=== PATIENT | male | born 1945 | race Caucasian/White ===

== ENCOUNTER 2022-10-20 13:00 | Outpatient (OUT) | payer MEDICARE, SELFPAY | END 2022-10-20 13:01 | disposition home or self-care (01) | LOC: PST 10-27 18:46 | PROVIDERS: Visit Provider Surgery | DX: Z01.818 Encounter for other preprocedural examination (principal); D50.9 Iron deficiency anemia, unspecified ==

== ENCOUNTER 2022-10-25 06:41 | Day surgery (SDC) | payer MEDICARE, SELFPAY ==
[2022-10-25 07:21] VITALS: BP 147/93; PULSE 74; RESP 16; TEMP 36.2; O2SAT 96; BMI 22.2
[2022-10-25] MEDS: LACTATED RINGER'S SOLUTION 1,000 ML 50 ML IV (07:31)
--- NOTE | 2022-10-25 08:03 | PM.GSPRC ---
Date of procedure: 10/25/22 Indications for Procedure: anemia; history of colon polyps Pre-op diagnosis: anemia unspecified; history of colon polyps Post-op diagnosis: other Procedure: EGD with biopsy antrum Colonoscopy with hot snare colon polyp ?2 5 mm sessile in sigmoid colon Diverticulosis minimal sigmoid colon Findings: colon polyp ?2 5 mm each and sigmoid colon Diverticulosisminimal Anesthesia: MAC Surgeon: Gurdeep Dasilva Procedure Summary: 77-year-old male presents for upper and lower endoscopy due to anemia and a history of colon polyps. Patient was taken to the endoscopy suite placed in the left lateral recumbent position and given sedation by the pile driving nozzleman. The Olympus EGD scope was advanced under direct visualization to the posterior pharynx esophagus stomach through the pylorus into the 1st 2nd 3rd and 4th portions of the duodenum which were normal. The scope was returned to the stomach retroflexed on itself looking the GE junction which was normal. There was minimal or mild gastritis noted prepyloric lesion in the antrum and biopsies were taken rule out H. pylori and gastritis. No ulcers polyps or tumors were seen. The scope was then withdrawn to the distal esophagus which was normal as well as the entire esophagus was normal. The scope was removed from the mouth. Rectal digital exam was performed. Sphincter counts found be normal. Prostate was smooth slightly enlarged without nodules. The Olympus video colonoscope was advanced under direct visualization into the rectum, sigmoid, descending, transverse, ascending colon to the ileocecal valve where the appendiceal lumen was visualized and the scope was slowly withdrawn and air was desufflated. In the sigmoid colon two small 5 mm polyps were hot snared one was retrieved. Both appeared benign. There were a few scattered diverticuli noted the prep was excellent. Patient tolerated procedure well. Would recommend repeat colonoscopy in five years depending on pathology. Estimated blood loss (mL): 0 Complications: No Condition: stable Disposition: PACU
[2022-10-25 08:51] VITALS: BP 123/65; PULSE 57; RESP 16; TEMP 36.4; O2SAT 96
[2022-10-25 09:05] VITALS: BP 142/81; PULSE 66; RESP 16; O2SAT 96
[2022-10-25 09:17] VITALS: BP 141/89; PULSE 66; RESP 16; O2SAT 97
[2022-10-26 15:07] LABS: H Pylori Tissue, Urease Negative
== END 2022-10-25 09:20 | disposition home or self-care (01) ==
PROVIDERS: Visit Provider Surgery
PROC: (CPT 43239; principal; 2022-10-25 08:20)
DX: K29.50 Unspecified chronic gastritis without bleeding (principal); D12.5 Benign neoplasm of sigmoid colon; K57.30 Diverticulosis of large intestine without perforation or abscess without bleeding; D50.9 Iron deficiency anemia, unspecified; Z86.010 Personal history of colon polyps; Z79.899 Other long term (current) drug therapy; M19.90 Unspecified osteoarthritis, unspecified site; J45.909 Unspecified asthma, uncomplicated; I48.91 Unspecified atrial fibrillation; I50.9 Heart failure, unspecified; I11.0 Hypertensive heart disease with heart failure; J44.9 Chronic obstructive pulmonary disease, unspecified; I25.10 Atherosclerotic heart disease of native coronary artery without angina pectoris; F32.A Depression, unspecified; K21.9 Gastro-esophageal reflux disease without esophagitis; H91.90 Unspecified hearing loss, unspecified ear; Z87.891 Personal history of nicotine dependence
CPT/HCPCS: 43239; 45385; 87077; 88305; 88342; 99999; J2704